=== PATIENT | female | born 1960 | race Caucasian/White ===

== ENCOUNTER 2019-12-31 23:48 | Observation (INO) | payer OTHER ==
[~2019-12-31] VITALS: Ht 167.6 cm; Wt 78.3 kg
[2020-01-01 02:02] VITALS: BP 148/81; PULSE 64; TEMP 98.8
[2020-01-01 04:08] VITALS: BP 119/65; PULSE 57; TEMP 97.5
--- NOTE | 2020-01-01 05:35 | NUR ---
PATIENT WAS ADMITTED FROM [facility]. PATIENT HAD SOME UNCOMFORTABLE CHEST PAIN IN HER STERNUM AREA. PATIENT IS ALERT AND ORIENTATED AND HOPING TO DISCHARGE THIS MORNING. PATIENT HAS NOT HAD ANY SIGNIFICANT WORKUP AT THIS POINT. PATIENT HAS DENIED ANY PAIN. INT IV TO THE LEFT AC. PATIENT IS HOPING TO DISCHARGE TO GO BACK TO HER DAUGHTER AND SON IN LAW AND CHILDREN THAT SHE IS HERE IN [facility] OUT FROM [place]. PATIENT DENIES ANY OTHER NEEDS AT THIS TIME. LUNG SOUNDS CLEAR. NO SIGNIFICANT HISTORY. WILL REPORT OFF TO DAY SHIFT.
[2020-01-01 07:14] VITALS: BP 115/64; PULSE 59; TEMP 98.4
--- NOTE | 2020-01-01 08:50 | NUR ---
Pt assessment completed. Pt sitting up in bed eating breakfast. Pt alert and oriented x4. Pt denies pain at this time. INT to left ac patent and free of complications. Pt denies any other needs at this time. Call light within reach. Will continue to monitor.
[2020-01-01 08:51] LABS: BASO % 0.8 % (0.0-2.0); EOS # 0.1 (0.0-0.7); EOS % 1.8 % (0-4.0); GRAN # 2.2 (1.4-6.5); HEMATOCRIT 43.4 % (37.0-47.0); HEMOGLOBIN 14.8 g/dl (12.5-16.0); LYMPH # 1.3 (1.2-3.4); LYMPH % 32.7 % (20.0-51.0); MEAN CELL VOLUME 87 fl (80.0-100.0); MEAN CORPUSCULAR HEMOGLOBIN 30 pg (27.0-31.0); MEAN CORPUSCULAR HGB CONC 34 g/dl (33.0-37.0); MEAN PLATELET VOLUME 9.7 fl (7.4-10.4); MONO # 0.3 (0.1-0.6); MONO % 8.4 % (1.7-9.3); PLATELET COUNT 169 K/mm3 (130-400); REDCELL DISTRIBUTION WIDTH-CV 12.9 % (11.5-14.5)
[2020-01-01 09:07] LABS: ANION GAP 9 mmol/L (7-16); BLOOD UREA NITROGEN 15 mg/dL (7-17); CALCIUM 9.1 mg/dL (8.4-10.2); CARBON DIOXIDE 22 mmol/L (22-30); CHLORIDE 108 mmol/L (98-107); CHOLESTEROL 140 mg/dL (120-200); CHOLESTEROL RISK RATIO 3.2; CREATININE, serum 0.55 (0.52-1.25); GLUCOSE 91 mg/dL (74-106); HDL CHOLESTEROL 43 mg/dL; LDL CHOLESTEROL 83 mg/dL; POTASSIUM 3.7 mmol/L (3.4-5.0); SODIUM 139 mmol/L (137-145); TRIGLYCERIDE 72 mg/dL
[2020-01-01 09:26] LABS: TROPONIN-I < 0.012 ng/mL (0.000-0.035)
--- NOTE | 2020-01-01 11:46 | NUR ---
Discharge instructions provided to pt and education was provided on all discharge instructions. Pt verablizes understanding of all discharge instructions including attending follow up appointments. Pt denies any questions at this time. INT to left ac discontinued. Pt denies any other needs. Pt escorted out by this RN.
--- NOTE | 2020-01-01 13:44 | NUR ---
Clerk Of Works stopped by before discharge but nothing was needed.
== END 2020-01-01 11:46 | disposition home or self-care (01) ==
LOC: MEDICAL 23:48
PROVIDERS: Physician Assistant; ADMIT Family Medicine
DX: R07.9 Chest pain, unspecified (principal); R73.03 Prediabetes; Z90.79 Acquired absence of other genital organ(s); Z88.2 Allergy status to sulfonamides; Z88.1 Allergy status to other antibiotic agents; Z80.41 Family history of malignant neoplasm of ovary
CPT/HCPCS: G0378